=== PATIENT | female | born 1960 | race Caucasian/White ===

== ENCOUNTER 2022-08-22 11:16 | Day surgery (SDC) | payer OTHER ==
[~2022-08-22] VITALS: Ht 157.5 cm; Wt 65.8 kg
[2022-08-22] MEDS ORDERED: fentaNYL citrate 0.05 MG/ML VIAL ONE (12:27)
[2022-08-22] MEDS ORDERED: LIDOCAINE 2% 100 MG/5 ML UJET TP ONE (12:27)
[2022-08-22] MEDS ORDERED: fentaNYL citrate 0.05 MG/ML VIAL IVP ONE (13:00)
== END 2022-08-22 13:25 | disposition home or self-care (01) ==
LOC: MMU 11:16 → MDS 11:16
PROVIDERS: ATTEND Internal Medicine Gastroenterology
DX: Z12.11 Encounter for screening for malignant neoplasm of colon (principal); E78.5 Hyperlipidemia, unspecified; Z20.822 Contact with and (suspected) exposure to COVID-19
CPT/HCPCS: 45378; 87426; J3010